=== PATIENT | female | born 1960 | race Caucasian/White ===

== ENCOUNTER 2021-05-23 16:48 | Emergency (ER) | payer OTHER ==
[~2021-05-23] VITALS: Ht 157.5 cm; Wt 82.1 kg
[2021-05-23] MEDS ORDERED: MORPHINE SULFATE 4 MG/1 ML DISP.SYRIN IM ONE (18:30)
[2021-05-23] MEDS ORDERED: TDAP DIPH,PERTUSS,TET VAC/PF 0.5 ML DISP.SYRIN IM ONE ×2 (18:30→18:37)
[2021-05-23] MEDS ORDERED: MORPHINE SULFATE 4 MG/1 ML DISP.SYRIN ONE (18:37)
--- NOTE | 2021-05-23 18:41 | NUR ---
PATIENT STATES SHE FELL DOWN THE STAIRS AND HIT HER HEAD ON THE MARBLE FLOOR. SHE HAS SOME BLOOD ON THE BACK OF HER HEAD. SHE IS AWAKE, ALERT, ORIENTED X4. DENIES NAUSEA. DENIES DIZZINESS. STATES DID NOT PASS OUT
--- NOTE | 2021-05-23 19:21 | NUR ---
WOUND ON SCALP CLEANSED WITH NS HAND OFF REPORT GIVEN TO YRN LAMAS
--- NOTE | 2021-05-23 19:24 | NUR ---
Patient discharged to home in stable condition. Written and verbal after care instructions given. Patient verbalizes understanding of instructions. Stressed follow up or return to ER for worsening s/s. Denies pain or SOB. Speech is clear, speaks in complete sentences. Steady gait.
[2021-05-23 19:25] VITALS: BP 145/88
== END 2021-05-23 19:26 | disposition home or self-care (01) ==
LOC: ER 16:50
DX: S01.01XA Laceration without foreign body of scalp, initial encounter (principal); S09.90XA Unspecified injury of head, initial encounter; W10.8XXA Fall (on) (from) other stairs and steps, initial encounter; Y92.019 Unspecified place in single-family (private) house as the place of occurrence of the external cause
CPT/HCPCS: 12001; 70450; 90471; 90715; 96372; 99284; J2270; A4663; J3490